=== PATIENT | female | born 1990 | race Caucasian/White ===

== ENCOUNTER 2023-05-29 10:15 | Inpatient (IN) | payer BC ==
[2023-05-29] MEDS ORDERED: Sodium Chloride 0.9% 10 ML Syringe FLUSH PRN (10:32)
[2023-05-29] MEDS ORDERED: Nalbuphine 10 MG/0.5 ML Syringe IVPUSH PRN (10:32)
[2023-05-29] MEDS ORDERED: Oxytocin/Lactated Ringers 10 UNIT/1,000 ML BAG IV SCH ×2 (10:45)
[2023-05-29 10:50] LABS: BASOPHILS ABSOLUTE AUTO 0.02 K/mm3 (0.01-0.08); BASOPHILS PERCENT AUTO 0.1 % (0.1-1.2); EOSINOPHILS ABSOLUTE AUTO 0.01 K/mm3 (0.04-0.36); EOSINOPHILS PERCENT AUTO 0.1 (0.7-5.8); HEMATOCRIT 37.3 % (34.1-44.9); HEMOGLOBIN 12.9 gm/dl (11.2-15.7); IMMATURE GRAN ABSOLUTE AUTO 0.08 K/mm3 (0.00-0.10); IMMATURE GRAN PERCENT AUTO 0.4 % (<=1.0); LYMPHOCYTES ABSOLUTE AUTO 2.06 K/mm3 (1.18-3.74); LYMPHOCYTES PERCENT AUTO 10.6 % (19.3-51.7); MEAN CORPUSCULAR HEMOGLOBIN 32.5 pg (25.6-32.2); MEAN CORPUSCULAR HGB CONC 34.6 g/dl (32.2-35.5); MEAN PLATELET VOLUME 11.1 fl (9.4-12.3); MONOCYTES ABSOLUTE AUTO 1.23 K/mm3 (0.24-0.36); MONOCYTES PERCENT AUTO 6.3 % (4.7-12.5); NEUTROPHILS ABSOLUTE AUTO 16.01 K/mm3 (1.56-6.13); NEUTROPHILS PERCENT AUTO 82.5 % (34.0-71.1); PLATELET COUNT,PLT 266 K/mm3 (182-369); RED BLOOD CELL COUNT 3.97 M/mm3 (3.98-5.22); WHITE BLOOD CELL COUNT,WBC 19.41 K/mm3 (3.98-10.04)
[2023-05-29] MEDS: Lactated Ringers 1,000 ML IV SCH ×3 (11:08→13:59)
[2023-05-29] MEDS ORDERED: diphenhydrAMINE 50 MG/ML SDV IVPUSH PRN (12:43)
[2023-05-29] MEDS ORDERED: ePHEDrine 50 MG/ML SDV IVPUSH PRN (12:43)
[2023-05-29] MEDS: fentaNYL 100 MCG/2 ML SDV EPIDUR PRN ×2 (12:49→23:20)
[2023-05-29] MEDS: Bupivacaine/fentaNYL/NS 100 ML Bag EPIDUR PRN ×2 (12:50→20:30)
[2023-05-30] MEDS ORDERED: Bupivacaine 0.25% 10 ML SDV ONE ×3
[2023-05-30] MEDS: Lactated Ringers 1,000 ML IV SCH ×2 (01:27→05:59)
[2023-05-30] MEDS: Bupivacaine/fentaNYL/NS 100 ML Bag EPIDUR PRN ×2 (01:29→05:59)
[2023-05-30] MEDS ORDERED: Oxytocin 10 Units/1 ML SDV ONE (02:00)
[2023-05-30] MEDS: fentaNYL 100 MCG/2 ML SDV EPIDUR PRN (04:15)
[2023-05-30] MEDS: Sodium Chloride 0.9% 10 ML Syringe FLUSH SCH ×2 (10:25→10:26)
[2023-05-30] MEDS ORDERED: Acetaminophen 325 MG Tab PO PRN (10:36)
[2023-05-30] MEDS ORDERED: Ibuprofen 600 MG Tab PO PRN (10:36)
[2023-05-30] MEDS ORDERED: Witch Hazel Medicated Pads 40/Jar TOP PRN (10:36)
[2023-05-30] MEDS ORDERED: Benzocaine/Menthol 20%-0.5% Spray 78 GM Cannister TOP PRN (10:36)
== END 2023-05-31 13:36 | disposition home or self-care (01) | DRG 560 ==
LOC: JD.OBCHECK 10:15 → JD.OB 11:33 → OBSVTOIN 05-30 08:29 → JD.MS 05-30 08:30 → JD.OB 05-30 14:59
PROVIDERS: ADMIT Obstetrics & Gynecology; ATTEND Obstetrics & Gynecology
PROC: 10E0XZZ Delivery of Products of Conception, External Approach (ICD-10-PCS; principal; 2023-05-30)
PROC: 10907ZC Drainage of Amniotic Fluid, Therapeutic from Products of Conception, Via Natural or Artificial Opening (ICD-10-PCS; 2023-05-30)
PROC: 3E0R3BZ Introduction of Anesthetic Agent into Spinal Canal, Percutaneous Approach (ICD-10-PCS; 2023-05-30)
PROC: 00HU33Z Insertion of Infusion Device into Spinal Canal, Percutaneous Approach (ICD-10-PCS; 2023-05-30)
PROC: 0HQ9XZZ Repair Perineum Skin, External Approach (ICD-10-PCS; 2023-05-30)
DX: O99.334 Smoking (tobacco) complicating childbirth (principal); F17.210 Nicotine dependence, cigarettes, uncomplicated; O99.214 Obesity complicating childbirth; O70.0 First degree perineal laceration during delivery; Z3A.39 39 weeks gestation of pregnancy; Z37.0 Single live birth; Z91.018 Allergy to other foods
CPT/HCPCS: 36415; 51702; 59025; 59409; 85025; 86592; A9270-GY; J2590; J3010; J3490; J7120